=== PATIENT | male | born 1945 | race Caucasian/White ===

== ENCOUNTER → 2017-04-20 | Outpatient (CLI) | payer MEDICARE, OTHER ==
[~2017-04-20] MED LIST: AMINOPHYLLINE INJ/PF 250 MG/10 ML SDV IV ONE; REGADENOSON INJ 0.4 MG/5 ML DISP.SYRIN IV ONE
--- NOTE | 2017-04-20 12:25 | DRAGON STRESS TEST REPORT ---
INTRAVENOUS LEXISCAN CARDIOLITE STRESS TEST USING SINGLE PHOTON EMMISION COMPUTERIZED TOMOGRAPHIC. DATE OF PROCEDURE: April 20, 2017, INDICATION : Coronary artery disease with prior bypass surgery CARDIAC RISK FACTORS: Hypertension, dyslipidemia, tobacco abuse RESTING EKG: Sinus rhythm without any significant baseline ST-T wave changes STRESS EKG: No significant changes noted with LexiScan bolus REASON FOR TERMINATION: Protocol. PROCEDURE REPORT: Baseline heart rate 88 beats per minute with blood pressure of 117/68. Patient had no significant complaints. Heart rate at 2 minutes post bolus 91 with a blood pressure of 115/70. 3 minutes post bolus heart rate 92 with blood pressure of 113/70. No significant EKG changes were noted. Patient had no significant complaints during the procedure or postprocedure. Patient injected with Aminophyllin 75 mg at 3 minutes or later after Lexiscan bolus. CONCLUSIONS: Normal EKG and hemodynamic response to IV LexiScan. NUCLEAR DATA: At rest the patient was given 14.73 millicuries of technetium 99 sestamibi injected intravenously. As per protocol rest gated SPECT images were obtained. On day of stress test, the patient was given intravenous LexiScan at a dose of 0.4 mg in 5 mL intravenously, followed by flush with normal saline. Subsequently the stress dose of 44.6 millicuries of technetium 99 sestamibi was injected intravenously. As per protocol stress gated images were obtained. NUCLEAR INTERPRETATION: Both raw and processed data were used for interpretation. Visual, qualitative, computer-generated quantitative data was used. There was good myocardial uptake of technetium compound. Motion artifact and soft tissue attenuations were noted. Increased visceral uptake was noted. No definitive areas of transient perfusion defect noted, severe fixed perfusion defect noted involving the inferior wall with corresponding inferior wall akinesia, indicative of severe scar involving the inferior wall.. EKG gated imaging showed LV EF at 25 %, rest and stress gated EF similar visually, basal and mid inferior wall akinesia noted. T. I D. ratio was 1.10. Lung heart ratio noted to be within normal limits 0.35. No significant extracardiac and abnormal radiotracer activities were noted. RV free wall uptake was noted to be increased suggestive of RVH and RV enlargement. IMPRESSION: Also refer to comments under nuclear interpretation. Also test results needs to be interpreted in the context of pretest probability. 1. No definitive areas of transient perfusion defect noted. 2. Severe fixed defect noted in the inferior wall consistent with prior inferior myocardial infarction. May consider viability assessment via either cardiac MRI or PET scanning if clinically indicated to look for any hibernating myocardium. 3. EKG gated imaging shows left ventricular ejection fraction of approx. 25 %, basal and mid inferior wall akinesia noted. 4. RV free wall uptake noted to be increased consistent with RVH/RV enlargement. 5. Clinical correlation requested as occasionally single vessel disease or balanced ischemia could be missed. In approximately 10% of the cases Lexiscan may not cause adequate vasodilatory stress. RECOMMENDATIONS: Aggressive risk factor modification and medical management. Further evaluation may be needed if continued symptoms or other high risk indicators are noted on clinical evaluation. Close cardiology follow-up is also recommended. Clinical correlation with echocardiogram derived ejection fraction. Inability to exercise by itself can lead to increased cardiovascular event risks. Consider cardiology consultation and or follow-up if clinically indicated. I am available for cardiology evaluation and consultation if requested by the plastic surgeon, unless patient already has a microbiology technologist. TAINA
== END ==
LOC: RAD 06:41
PROVIDERS: ATTEND Nurse Practitioner Family
DX: I25.10 Atherosclerotic heart disease of native coronary artery without angina pectoris (principal); I10 Essential (primary) hypertension; E78.00 Pure hypercholesterolemia, unspecified; Z72.0 Tobacco use; Z95.1 Presence of aortocoronary bypass graft
CPT/HCPCS: 93017; 78452; A9500; J2785; J0280; Q9969

== ENCOUNTER 2017-05-15 18:43 | Observation (INO) | payer MEDICARE, OTHER ==
--- NOTE | 2017-05-15 20:01 | ER Document Report ---
ED General - General Chief Complaint: Respiratory Distress Stated Complaint: WEAKNESS Time Seen by Provider: 05/15/17 19:12 Cannot obtain history due to: Altered mental status Notes: Patient is a 72-year-old male with a past medical history of coronary artery disease status post four-vessel bypass, CHF status post placement of pacer and defib, COPD with chronic oxygen dependence although apparently his baseline oxygen saturation is 83% on 2 L by nasal cannula, hypertension, and ongoing tobacco abuse as well as narcotic dependence who presents with altered mental status. History is primarily provided by the family at the bedside. The [id number] reports that she goes over to the patient's house each day to help take care of him. She states that usually when she arrives he is up, moving about taking care of his dog and having coffee. She does however when she arrived today all the lights were out in the home and the patient was found to be confused and altered while lying in bed. Is very somnolent, did not wish to get up. They allowed the patient to sleep for several hours more and when they again checked on him he continued to be very tired and want to continue to sleep. At this point EMS was contacted. Patient was found to have a buprenorphine patch on which was removed by EMS. He was subsequently transferred to the emergency department on a nonrebreather. At time of assessment, patient is somnolent but does wake and is able to tell me his name but is unable to tell me the president or where we are. Family the bedside notes that this is not normal for the patient. He has no history of similar episodes in the past. They do not believe he would have misused any of his medications. History is otherwise limited secondary to patient's altered mental status. TRAVEL OUTSIDE OF THE [place] IN LAST 30 DAYS: No - Related Data Allergies/Adverse Reactions: iodine [Iodine] Allergy (Verified 02/19/14 15:08) morphine [Morphine] Allergy (Verified 02/19/14 15:08) Penicillins Allergy (Verified 02/19/14 15:08) Past Medical History - General Information source: Patient, Relative Cannot obtain history due to: Altered mental status - Social History Smoking Status: Current Every Day Smoker Chew tobacco use (# tins/day): No Frequency of alcohol use: None Drug Abuse: None Lives with: Alone Family History: Reviewed & Not Pertinent Patient has suicidal ideation: No Patient has homicidal ideation: No - Past Medical History Cardiac Medical History: Reports: Hx Congestive Heart Failure, Hx Heart Attack, Hx Hypercholesterolemia, Hx Hypertension Neurological Medical History: Reports: Hx Seizures Endocrine Medical History: Reports: Hx Diabetes Mellitus Type 2 - Non insulin dependent Renal/ Medical History: Denies: Hx Peritoneal Dialysis GI Medical History: Reports: Hx Hiatal Hernia Psychiatric Medical History: Reports: Hx Depression Past Surgical History: Reports: Hx Cardiac Catheterization - Carotid, Hx Cardiac Surgery - BYPASS - Immunizations Hx Diphtheria, Pertussis, Tetanus Vaccination: Yes Review of Systems - Review of Systems -: Yes ROS unobtainable due to patient's medical condition Physical Exam - Vital signs Vitals: Resp BP Pulse Ox 23 H 184/172 H 99 05/15/17 19:07 05/15/17 19:07 05/15/17 19:07 Interpretation: Hypertensive, Hypoxic Notes: PHYSICAL EXAMINATION: GENERAL: Appears confused, ill, somnolent HEAD: Atraumatic, normocephalic. EYES: Pupils are pinpoint, sluggishly reactive, extraocular movements intact, sclera anicteric, conjunctiva are normal. ENT: nares patent, oropharynx clear without exudates. Moderately dry mucous membranes. NECK: Normal range of motion, supple without lymphadenopathy LUNGS: Diminished air movement in all lung carpenter. Faint end expiratory wheezing throughout. HEART: Regular rate and rhythm without murmurs, 3 out of 6 systolic ejection murmur ABDOMEN: Obese abdomen, soft, nontender, normoactive bowel sounds. No guarding , no rebound. No masses appreciated. EXTREMITIES: Trace edema in the bilateral lower extremities that is equal and symmetric. No cyanosis. NEUROLOGICAL: No focal neurological deficits. Moves all extremities spontaneously and on command. PSYCH: Somnolent, oriented only to person SKIN: Warm, Dry, normal turgor, no rashes or lesions noted. Course - Re-evaluation Re-evalutation: 05/15/17 19:59 Patient presents very lethargic, difficult awake but does answer questions upon waking. He is oriented only to name, is unaware of the year or month. The patient does present with signs and symptoms worrisome for hypercapnic encephalopathy. Lung examination shows diminished air movement in all lung carpenter. Apparently patient is normally saturating 83-84% on 2 L of nasal cannula at baseline and is supposed to wear CPAP but does not do so. He also has a history of COPD and CHF. He continues to smoke 2 packs a day. He has multiple dietary indiscretions for the family. He is also at risk for opiate overdose as he does take hydrocodone several times daily and has a buprenorphine patch on at baseline. This patch has been removed and patient does not present as having overt opiate overdose. Moreover, his clinical history is not consistent with this as the family notes that when they came over to check on him today in the morning usually is awake, up drinking coffee and having breakfast but instead he was lying in bed and has been doing so all day today. Will place the patient on BiPAP obtain a blood gas, labs, chest x- ray, and continue to reassess the patient frequently. He is critically ill at this time. 05/15/17 20:33 Patient has received a total of 0.2 milligrams of naloxone and did have some improvement of his mental status. His arterial blood gas does show signs consistent with hypercapnic respiratory failure. Will continue on BiPAP, awaiting the remainder labs, imaging studies and then will discuss the hospitalist for admission. 05/15/17 21:11 Patient is becoming more alert, awake after although continues to doze off easily. Awaiting the results of CT scan, chest x-ray and labs. Continue to monitor very closely. Patient remains in guarded condition. 05/15/17 23:05 Patient continues to be somewhat lethargic but wakes more easily than before. His repeat ABG does show improvement of his respiratory acidosis. His BNP is more elevated than baseline although he does not have any overt pulmonary edema on chest x-ray. I discussed this case with Dr. Brice Soria and he is accepted this patient for admission. - Vital Signs Vital signs: Temp Pulse Resp BP Pulse Ox 14 124/82 82 L 05/16/17 01:45 05/16/17 01:01 05/16/17 01:45 - Laboratory Result Diagrams: 05/15/17 21:30 05/15/17 21:30 Laboratory results interpreted by me: 05/15/17 05/15/17 05/15/17 20:15 21:30 21:30 RBC 5.94 H Hgb 17.3 H Hct 53.7 H RDW 21.1 H Plt Count 101 L Seg Neutrophils % 78.6 H Lymphocytes % 9.6 L Carbonic Acid 2.20 H ABG pH 7.26 L ABG pCO2 73.0 H* ABG pO2 58.0 L ABG HCO3 31.7 H ABG Total CO2 33.9 H ABG O2 Saturation 84.8 L Sodium 145.3 H Potassium 5.5 H Carbon Dioxide 31 H BUN 33 H Creatinine 1.51 H Est GFR ( Amer) 55 L Est GFR (Non-Af Amer) 46 L Glucose 128 H NT-Pro-B Natriuret Pep 05/15/17 05/15/17 21:30 22:36 RBC Hgb Hct RDW Plt Count Seg Neutrophils % Lymphocytes % Carbonic Acid 2.10 H ABG pH 7.29 L ABG pCO2 69.8 H* ABG pO2 56.2 L ABG HCO3 33.0 H ABG Total CO2 35.2 H ABG O2 Saturation 85.0 L Sodium Potassium Carbon Dioxide BUN Creatinine Est GFR ( Amer) Est GFR (Non-Af Amer) Glucose NT-Pro-B Natriuret Pep 5910 H - Diagnostic Test Radiology reviewed: Image reviewed, Reports reviewed Radiology results interpreted by me: 05/15/17 23:06 CT head: No acute intracranial bleed Chest x-ray: No overt pulmonary edema - EKG Interpretation by Me Additional EKG results interpreted by me: 05/15/17 23:07 Normal sinus rhythm. Rate 79. No ST elevations or depressions. QTC is 441. Critical Care Note - Critical Care Note Total time excluding time spent on procedures (mins): 39 Comments: Critical care time spent obtaining history from patient or surrogate, discussions with consultants, development of treatment plan with patient or surrogate, evaluation of patient's response to treatment, examination of patient , ordering and performing treatments and interventions, ordering and review of laboratory studies, re-evaluation of patient's condition, ordering and review of radiographic studies and review of old charts Discharge - Discharge Clinical Impression: Hypercapnia, COPD exacerbation Altered mental status Qualifiers: Altered mental status type: somnolence Qualified Code(s): R40.0 - Somnolence Narcotic overdose Qualifiers: Encounter type: initial encounter Injury intent: accidental or unintentional Qualified Code(s): T40.601A - Poisoning by unspecified narcotics, accidental ( unintentional), initial encounter Condition: Fair Disposition: ADMITTED INPATIENT Admitting Provider: [facility], [facility] Unit Admitted: Telemetry
[2017-05-15] MEDS ORDERED: NALOXONE HCL INJ/PF 0.4 MG/1 ML SDV IV ONE (20:02)
[2017-05-15 20:31] LABS: ARTERIAL BLOOD BASE EXCESS 1.5 mmol/L; ARTERIAL BLOOD FIO2 40%; ARTERIAL BLOOD HCO3 31.7 mmol/L (20-26); ARTERIAL BLOOD O2 SATURATION 84.8 % (94-98); ARTERIAL BLOOD PH 7.26 (7.35-7.45); ARTERIAL BLOOD TOTAL CO2 33.9 mmol/L (23-27)
--- NOTE | 2017-05-15 21:20 | RADIOLOGY REPORT (SQ) ---
EXAM DESCRIPTION: CHEST PA/LAT COMPLETED DATE/TIME: 05/15/2017 9:06 pm REASON FOR STUDY: shortness of breath COMPARISON: 03/11/2014 EXAM PARAMETERS: NUMBER OF VIEWS: two views TECHNIQUE: Digital Frontal and Lateral radiographic views of the chest acquired. RADIATION DOSE: NA LIMITATIONS: none FINDINGS: LUNGS AND PLEURA: No opacities, masses or pneumothorax. No pleural effusion. MEDIASTINUM AND HILAR STRUCTURES: No masses or contour abnormalities. HEART AND VASCULAR STRUCTURES: Heart normal size. No evidence for failure. BONES: No acute findings. HARDWARE: Patient is/defibrillator. Sternotomy wire. Neural spine stimulator. OTHER: No other significant finding. IMPRESSION: NO SIGNIFICANT RADIOGRAPHIC FINDING IN THE CHEST. TECHNICAL DOCUMENTATION: JOB ID: [id number] [employer]- All Rights Reserved Reading location - IP/workstation name: [email or web address]
--- NOTE | 2017-05-15 21:24 | RADIOLOGY REPORT (SQ) ---
EXAM DESCRIPTION: CT HEAD WITHOUT COMPLETED DATE/TIME: 05/15/2017 9:07 pm REASON FOR STUDY: ams COMPARISON: None. TECHNIQUE: Axial images acquired through the brain without intravenous contrast. Images reviewed wi th bone, brain and subdural windows. Images stored on PACS. All CT scanners at this facility use dose modulation, iterative reconstruction, and/or weight based d osing when appropriate to reduce radiation dose to as low as reasonably achievable (ALARA). [facility]: Dose Right [facility]: CareDose [facility]: Dose Right [facility]: Teradose 4D [facility]: Smart [employer] RADIATION DOSE: CT Rad equipment meets quality standard of care and radiation dose reduction techniq ues were employed. CTDIvol: 64.6 mGy. DLP: 1267 mGy-cm. mGy. LIMITATIONS: None. FINDINGS: VENTRICLES: Normal size and contour. CEREBRUM: No masses. No hemorrhage. No midline shift. No evidence for acute infarction. Few scatte red areas of low density in the white matter most likely chronic small vessel ischemic changes. CEREBELLUM: No masses. No hemorrhage. No alteration of density. No evidence for acute infarction. EXTRAAXIAL SPACES: No fluid collections. No masses. ORBITS AND GLOBE: No intra- or extraconal masses. Normal contour of globe without masses. CALVARIUM: No fracture. PARANASAL SINUSES: No fluid or mucosal thickening. SOFT TISSUES: No mass or hematoma. OTHER: No other significant finding. IMPRESSION: MILD CHRONIC MICROVASCULAR ISCHEMIA. NO ACUTE IMAGING FINDINGS IN THE BRAIN. EVIDENCE OF ACUTE STROKE: NO. COMMENT: Quality ID # [id number]: Final reports with documentation of one or more dose reduction techniques (e.g., Automated exposure control, adjustment of the mA and/or kV according to patient size, use of iterative reconstruction technique) TECHNICAL DOCUMENTATION: JOB ID: [id number] [employer] All Rights Reserved Reading location - IP/workstation name: [email or web address]
[2017-05-15 21:47] LABS: ABSOLUTE LYMPHOCYTES (AUTO) 0.9 10^3/uL (0.5-4.7); ABSOLUTE MONOCYTES (AUTO) 1.1 10^3/uL (0.1-1.4); ABSOLUTE NEUT (AUTO) 7.7 10^3/uL (1.7-8.2); BASOPHILS % (AUTO) 0.3 % (0-2); HEMATOCRIT 53.7 % (37.9-51.0); HEMOGLOBIN 17.3 g/dL (13.5-17.0); LYMPHOCYTES % (AUTO) 9.6 % (13-45); MEAN CORPUSCULAR HEMOGLOBIN 29.1 pg (27.0-33.4); MEAN CORPUSCULAR HGB CONC 32.3 g/dL (32.0-36.0); MEAN CORPUSCULAR VOLUME 90 fl (80-97); MONOCYTES % (AUTO) 11.5 % (3-13); PLATELET COUNT 101 10^3/uL (150-450); RED BLOOD COUNT 5.94 10^6/uL (4.35-5.55); RED CELL DISTRIBUTION WIDTH 21.1 % (11.5-14.0); SEGMENTED NEUTROPHILS % (AUTO) 78.6 % (42-78); TOTAL CELLS COUNTED % (AUTO) 100 %; WHITE BLOOD COUNT 9.8 10^3/uL (4.0-10.5)
--- NOTE | 2017-05-15 21:54 | EKG REPORT ---
SEVERITY:- ABNORMAL ECG - SINUS RHYTHM PROBABLE INFERIOR INFARCT, AGE INDETERMINATE : Confirmed by: Maranda Petersen 15-May-2017 21:54:29
[2017-05-15 22:04] LABS: ALANINE AMINOTRANSFERASE 22 U/L (21-72); ALBUMIN 4.4 g/dL (3.5-5.0); ALKALINE PHOSPHATASE 49 U/L (38-126); ANION GAP 11 (5-19); ASPARTATE AMINO TRANSFERASE 26 U/L (17-59); BILIRUBIN,DIRECT 0.3 mg/dL (0.0-0.4); BILIRUBIN,TOTAL 0.4 mg/dL (0.2-1.3); BLOOD UREA NITROGEN 33 mg/dL (7-20); CALCIUM 9.6 mg/dL (8.4-10.2); CARBON DIOXIDE 31 mmol/L (22-30); CHLORIDE 103 mmol/L (98-107); GLUCOSE 128 mg/dL (75-110); POTASSIUM 5.5 mmol/L (3.6-5.0); SODIUM 145.3 mmol/L (137-145); TOTAL PROTEIN 6.6 g/dL (6.3-8.2)
[2017-05-15 22:35] LABS: TROPONIN I 0.054 ng/mL
[2017-05-15 22:46] LABS: ARTERIAL BLOOD BASE EXCESS 3.6 mmol/L; ARTERIAL BLOOD PH 7.29 (7.35-7.45); ARTERIAL BLOOD PO2 56.2 mmHg (80-100); ARTERIAL BLOOD TOTAL CO2 35.2 mmol/L (23-27)
[2017-05-15 22:48] LABS: ARTERIAL BLOOD FIO2 50%
[2017-05-15 22:54] LABS: ARTERIAL BLOOD PCO2 69.8 mmHg (35-45)
[2017-05-15] MEDS ORDERED: IPRATROPIUM/ALBUTEROL 0.5-2.5 MG/3 ML AMPUL NEB ONE (23:08)
[2017-05-15] MEDS ORDERED: METHYLPREDNISOLONE INJ 125 MG/2 ML SDV IV ONE (23:08)
--- NOTE | 2017-05-16 04:13 | PDOC H&P ---
History of Present Illness Admission Date/PCP: 05/16/17 00:14 RYNE EDMONDSON PA-C Patient complains of: Altered mental status History of Present Illness: MICHAEL GRAIBAY is a 72 year old male with a past medical history of obstructive sleep apnea, chronic bronchitis, COPD with home oxygen dependence, coronary artery disease, congestive heart failure with ejection fraction 25%, status post pacemaker, defibrillator, CPAP noncompliance and ongoing tobacco abuse. Patient presents after [id number] reports patient found confused and somnolent. EMS discovered opiate patch and oxygen saturations in the 70s. He is brought to the emergency room for evaluation found to have pinpoint pupils receiving Narcan and placed on BiPAP. ABG reveals a PCO2 of 73. Patient is unable to maintain conversation. No additional history is available. Past Medical History Cardiac Medical History: Reports: Congestive Heart Failure, Myocardial Infarction, Hyperlipidema, Hypertension Pulmonary Medical History: Reports: Bronchitis, Chronic Obstructive Pulmonary Disease (COPD) Neurological Medical History: Reports: Seizures Endocrine Medical History: Reports: Diabetes Mellitus Type 2 - Non insulin dependent GI Medical History: Reports: Hiatal Hernia Psychiatric Medical History: Reports: Depression, Tobacco Dependency Past Surgical History Past Surgical History: Reports: Cardiac Catheterization - Carotid, Internal Defibrillator, Pacemaker Social History Information Source: Emergency Med Personnel, [facility] Records Lives with: Alone Smoking Status: Current Every Day Smoker - Advance Directive Resuscitation Status: Full Code Family History Parental Family History Reviewed: No Children Family History Reviewed: No Sibling(s) Family History Reviewed.: No Medication/Allergy Home Medications: Atorvastatin Calcium [Lipitor 80 mg Tablet] 80 mg PO QHS 02/03/14 Celecoxib [Celebrex 200 mg Capsule] 200 mg PO DAILY 02/03/14 Clopidogrel Bisulfate [Plavix 75 mg Tablet] 75 mg PO DAILY 02/03/14 Cyclobenzaprine HCl 5 mg PO TID PRN 02/03/14 Divalproex Sodium [Divalproex Sodium ER] 500 mg PO QHS 02/03/14 Docusate Sodium [Colace 100 mg Capsule] 100 mg PO BID 02/03/14 Escitalopram Oxalate [Lexapro 10 mg Tablet] 10 mg PO DAILY 02/03/14 Hydrocodone/Acetaminophen [[place] 5-325 Tablet] 1 each PO BID PRN 02/03/14 Melatonin/Pyridoxine HCl (B6) [Melatonin 5 mg Tablet] 1 each PO QHS 02/03/14 Metoprolol Succinate 25 mg PO DAILY 02/03/14 Risperidone [Risperdal 1 mg Tablet] 1 mg PO Q12 02/03/14 Rizatriptan Benzoate [Maxalt] 10 mg PO ASDIR PRN 02/03/14 Tramadol HCl 50 mg PO QHS PRN 02/03/14 Allergies/Adverse Reactions: iodine [Iodine] Allergy (Verified 02/19/14 15:08) morphine [Morphine] Allergy (Verified 02/19/14 15:08) Penicillins Allergy (Verified 02/19/14 15:08) Review of Systems ROS unobtainable: Due to mental status Physical Exam Vital Signs: Temp Pulse Resp BP Pulse Ox 15 145/87 H 90 L 05/16/17 03:01 05/16/17 03:01 05/16/17 03:01 General appearance: PRESENT: disheveled, severe distress, other - Chronically ill-appearing with temporal wasting and cachexia Head exam: PRESENT: atraumatic, normocephalic Eye exam: PRESENT: conjunctiva pink, EOMI, PERRLA. ABSENT: scleral icterus Ear exam: PRESENT: normal external ear exam Mouth exam: PRESENT: moist, tongue midline Neck exam: ABSENT: carotid bruit, JVD, lymphadenopathy, thyromegaly Respiratory exam: PRESENT: crackles, decreased breath sounds, prolonged expiratory phas, retraction, symmetrical, tachypnea Cardiovascular exam: PRESENT: RRR. ABSENT: diastolic murmur, rubs, systolic murmur Pulses: PRESENT: normal dorsalis pedis pul Vascular exam: PRESENT: normal capillary refill GI/Abdominal exam: PRESENT: ascites, normal bowel sounds, soft. ABSENT: distended, guarding, mass, organolmegaly, rebound, tenderness Rectal exam: PRESENT: deferred Extremities exam: PRESENT: full ROM, tenderness, +1 edema. ABSENT: calf tenderness, clubbing, pedal edema Neurological exam: PRESENT: altered. ABSENT: motor sensory deficit Skin exam: PRESENT: dry, intact, petechiae - Bilateral lower extremity petechia , warm. ABSENT: cyanosis, rash Results Impressions: Head CT 05/15/17 00:00 IMPRESSION: MILD CHRONIC MICROVASCULAR ISCHEMIA. NO ACUTE IMAGING FINDINGS IN THE BRAIN. EVIDENCE OF ACUTE STROKE: NO. Chest X-Ray 03/05/18 19:57 IMPRESSION: NO SIGNIFICANT RADIOGRAPHIC FINDING IN THE CHEST. Assessment & Plan - Diagnosis (1) Narcotic overdose Qualifiers: Encounter type: initial encounter Injury intent: accidental or unintentional Qualified Code(s): T40.601A - Poisoning by unspecified narcotics , accidental (unintentional), initial encounter Is this a current diagnosis for this admission?: Yes Plan: Patch removed by EMS, pinpoint pupils and hypoventilation. Narcan as needed, BiPAP support, opiate weaning. (2) COPD exacerbation Is this a current diagnosis for this admission?: Yes Plan: Albuterol and Atrovent, incentive spirometry and flutter valve, BiPAP support (3) Congestive heart failure Is this a current diagnosis for this admission?: Yes Plan: BiPAP, supplemental oxygen, optimize blood pressure and ventilation (4) Hypercapnia Is this a current diagnosis for this admission?: Yes Plan: Complicated by past medical history apnea, opiate use. BiPAP and opiate weaning - Time Time Spent: 50 to 70 Minutes - Inpatient Certification Medical Necessity: Need Close Monitoring Due to Risk of Patient Decompensation
[2017-05-16] MEDS ORDERED: RINGERS SOLUTION,LACTATED 1,000 ML IV PRN (08:24)
[2017-05-16] MEDS ORDERED: 1/2 NORMAL SALINE 1,000 ML IV PRN (08:30)
[2017-05-16] MEDS ORDERED: ENOXAPARIN SODIUM INJ 30 MG/0.3 ML DISP.SYRIN SUBCUT SCH (10:00)
[2017-05-16 11:08] LABS: ANION GAP 12 (5-19); BLOOD UREA NITROGEN 34 mg/dL (7-20); CALCIUM 8.9 mg/dL (8.4-10.2); CARBON DIOXIDE 31 mmol/L (22-30); CHLORIDE 101 mmol/L (98-107); GLUCOSE 190 mg/dL (75-110); POTASSIUM 5.3 mmol/L (3.6-5.0); SODIUM 143.5 mmol/L (137-145)
[2017-05-16 11:51] LABS: APPEARANCE,URINE SLIGHTLY-CLOUDY; BILIRUBIN,URINE NEGATIVE (NEGATIVE); COLOR,URINE YELLOW; GLUCOSE, URINE NEGATIVE (NEGATIVE); KETONES,URINE NEGATIVE (NEGATIVE); LEUKOCYTE ESTERASE,URINE NEGATIVE (NEGATIVE); NITRITE,URINE NEGATIVE (NEGATIVE); PROTEIN,URINE NEGATIVE (NEGATIVE); UROBILINOGEN,URINE NEGATIVE mg/dL (<2.0)
[2017-05-16] MEDS: IPRATROPIUM/ALBUTEROL 0.5-2.5 MG/3 ML AMPUL NEB SCH ×3 (12:47→19:49)
--- NOTE | 2017-05-16 13:27 | PDOC DISCHARGE SUMMARY ---
General - Admit/Disc Date/PCP Admission Date/Primary Care Provider: 05/16/17 00:14 RYNE EDMONDSON PA-C Discharge Date: 05/16/17 - Discharge Diagnosis (1) Altered mental status Is this a current diagnosis for this admission?: Yes (2) COPD exacerbation Is this a current diagnosis for this admission?: Yes (3) Congestive heart failure Is this a current diagnosis for this admission?: Yes (4) Hypercapnia Is this a current diagnosis for this admission?: Yes (5) Narcotic overdose Is this a current diagnosis for this admission?: Yes (6) Metabolic encephalopathy Is this a current diagnosis for this admission?: Yes - Additional Information Resuscitation Status: Full Code Home Medications: Buprenorphine [Butrans] 20 mcg TOP Q7D 05/16/17 Carbidopa/Levodopa [Sinemet 25-100 mg Tablet] 1 tab PO Q8 05/16/17 Clopidogrel Bisulfate [Plavix 75 mg Tablet] 75 mg PO DAILY 05/16/17 Docusate Sodium [Colace 100 mg Capsule] 100 mg PO TID 05/16/17 Finasteride [Proscar 5 mg Tablet] 5 mg PO DAILY 05/16/17 Furosemide [Lasix 40 mg Tablet] 40 mg PO DAILY 05/16/17 Gabapentin [Neurontin 300 mg Capsule] 300 mg PO Q8 05/16/17 Hydrocodone/Acetaminophen [Hydrocodone-Acetamin 7.5-325] 1 tab PO Q8 05/16/17 Magnesium Oxide [Mag-Ox 400 mg Tablet] 400 mg PO DAILY 05/16/17 Mineral Oil/Petrolatum,White [Eucerin Cream 114 gm] 1 applic TOP DAILYP PRN 08/28 Mirabegron [Myrbetriq] 25 mg PO DAILY 05/16/17 Potassium Chloride [K-Tab ER] 20 meq PO DAILY 05/16/17 Quetiapine Fumarate [Seroquel] 50 mg PO BID 05/16/17 Simvastatin [Zocor 40 mg Tablet] 40 mg PO QHS 05/16/17 Tamsulosin HCl [Flomax 0.4 mg Cap.sr] 0.4 mg PO PCSUPPER 05/16/17 History of Present Illness History of Present Illness: MICHAEL GARIBAY is a 72 year old male with a past medical history of obstructive sleep apnea, chronic bronchitis, COPD with home oxygen dependence, coronary artery disease, congestive heart failure with ejection fraction 25%, status post pacemaker, defibrillator, CPAP noncompliance and ongoing tobacco abuse. Patient presents after [id number] reports patient found confused and somnolent. EMS discovered opiate patch and oxygen saturations in the 70s. He is brought to the emergency room for evaluation found to have pinpoint pupils receiving Narcan and placed on BiPAP. ABG reveals a PCO2 of 73. Patient is unable to maintain conversation. No additional history is available. Hospital Course Hospital Course: Patient is a 72-year-old man with history of chronic respiratory failure on home oxygen, COPD 2 L at home, coronary artery disease, systolic dysfunction, medical noncompliance. He refused to wear his oxygen. He was found at home by the son somnolent and confused. He was brought to the ER and there was a concern for narcotic overdose. ABG revealing hypercapnia with PCO2 of 73. Before going down to see up patient, I have receive a call from the nurse that the patient wanted to go home. I spoke to both the patient and the family that he needs to wear the oxygen and the family denies that the patient took too many of his narcotic medications. 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 He also was advised to titrate his oxygen level to 3-4 L to maintain O2 sat >88-90%. He is being discharged home and the family plans to stay with him tonight. Physical Exam Vital Signs: Temp Pulse Resp BP Pulse Ox 98.3 F 87 20 150/87 H 92 05/16/17 11:04 05/16/17 12:47 05/16/17 12:47 05/16/17 09:01 05/16/17 12:47 General appearance: PRESENT: no acute distress, other - chronically ill elderly man Head exam: PRESENT: atraumatic, normocephalic Eye exam: PRESENT: EOMI Mouth exam: PRESENT: neck supple Neck exam: PRESENT: full ROM Respiratory exam: PRESENT: decreased breath sounds, unlabored. ABSENT: accessory muscle use Cardiovascular exam: PRESENT: RRR GI/Abdominal exam: PRESENT: normal bowel sounds, soft Rectal exam: ABSENT: deferred Extremities exam: PRESENT: full ROM Neurological exam: PRESENT: oriented to person, oriented to time, oriented to situation Psychiatric exam: PRESENT: appropriate affect Skin exam: PRESENT: dry, warm Results Laboratory Results: 05/16/17 10:10 05/16/17 05/16/17 10:10 11:15 Sodium 143.5 Potassium 5.3 H Chloride 101 Carbon Dioxide 31 H Anion Gap 12 BUN 34 H Creatinine 1.23 Est GFR ( Amer) > 60 Est GFR (Non-Af Amer) 58 L Glucose 190 H Calcium 8.9 Urine Color YELLOW Urine Appearance SLIGHTLY-CLOUDY Urine pH 5.0 Ur Specific [place] 1.020 Urine Protein NEGATIVE Urine Glucose (UA) NEGATIVE Urine Ketones NEGATIVE Urine Blood NEGATIVE Urine Nitrite NEGATIVE Ur Leukocyte Esterase NEGATIVE Urine WBC (Auto) 8 Urine RBC (Auto) 2 Impressions: Head CT 05/15/17 00:00 IMPRESSION: MILD CHRONIC MICROVASCULAR ISCHEMIA. NO ACUTE IMAGING FINDINGS IN THE BRAIN. EVIDENCE OF ACUTE STROKE: NO. Chest X-Ray 05/15/17 19:57 IMPRESSION: NO SIGNIFICANT RADIOGRAPHIC FINDING IN THE CHEST. Qualifiers - * PATEINT BEING DISCHARGED WITH ANY OF THE FOLLOWING DIAGNOSIS?: No VTE patient discharged on overlapping Therapy?: Yes Plan Time Spent: Less than 30 Minutes
[2017-05-16 14:27] VITALS: BP 156/82
[2017-05-17] MEDS ORDERED: ENOXAPARIN SODIUM INJ 30 MG/0.3 ML DISP.SYRIN SUBCUT SCH (10:00)
== END 2017-05-16 14:53 | disposition home or self-care (01) ==
LOC: ER 18:43 → EH 05-16 00:14 → INTOOBSV 05-16 00:14
PROVIDERS: ADMIT Internal Medicine; ATTEND Internal Medicine
DX: R41.82 Altered mental status, unspecified (principal); J44.1 Chronic obstructive pulmonary disease with (acute) exacerbation; I11.0 Hypertensive heart disease with heart failure; I50.9 Heart failure, unspecified; J96.12 Chronic respiratory failure with hypercapnia; T40.601A Poisoning by unspecified narcotics, accidental (unintentional), initial encounter; G93.41 Metabolic encephalopathy; G47.33 Obstructive sleep apnea (adult) (pediatric); I25.10 Atherosclerotic heart disease of native coronary artery without angina pectoris; E11.9 Type 2 diabetes mellitus without complications; I25.2 Old myocardial infarction; F17.210 Nicotine dependence, cigarettes, uncomplicated; E78.5 Hyperlipidemia, unspecified; R18.8 Other ascites; F11.20 Opioid dependence, uncomplicated; Z99.81 Dependence on supplemental oxygen; Z95.810 Presence of automatic (implantable) cardiac defibrillator; Z91.14 Patient's other noncompliance with medication regimen; Z79.899 Other long term (current) drug therapy; Z95.1 Presence of aortocoronary bypass graft; E66.9 Obesity, unspecified; E87.2 Acidosis; Z68.29 Body mass index [BMI] 29.0-29.9, adult
CPT/HCPCS: 93005; 99291; 36415 ×2; 82803; 85025; 80048; 80053; 81001; 84484; 83605; 83880; 71046; 70450; 93010; 94660 ×2; 94640; J2930; J2310; J1650; A9270; J7620

== ENCOUNTER → 2017-06-30 | Outpatient (CLI) | payer MEDICARE, OTHER ==
--- NOTE | 2017-06-30 14:25 | RADIOLOGY REPORT (SQ) ---
EXAM DESCRIPTION: CT LUNG CANCER SCREENING COMPLETED DATE/TIME: 06/30/2017 1:59 pm REASON FOR STUDY: PERSONAL HX OF NICOTINE DEPENDENCE Z87.891 PERSONAL HISTORY OF NICOTINE DEPENDENC E Has the patient had a Chest CT scan within the past year? Yes. Was the patient offered tobacco cessation counseling? Yes. Was the patient engaged in shared decision making for this test? Yes. Does the patient have signs or symptoms of Lung Cancer? No. Is the patient a smoker? Yes. How many packs per year? 730. How many years since quitting smoking? Current smoker. Patients age: 72. COMPARISON: None. TECHNIQUE: Low Dose CT scan performed of the chest without intravenous contrast for purposes of scre ening for lung cancer. Images reviewed with lung, soft tissue and bone windows. Reconstructed coron al and sagittal MPR images reviewed. All images stored on PACS. All CT scanners at this facility use dose modulation, iterative reconstruction, and/or weight based d osing when appropriate to reduce radiation dose to as low as reasonably achievable (ALARA). [facility]: Dose Right [facility]: CareDose [facility]: Dose Right [facility]: Teradose 4D [facility]: [employer] RADIATION DOSE: mGy. . LIMITATIONS: No technical limitations. FINDINGS: LUNG NODULES: 4.3 mm nodule in the right upper lobe (axial series 3, image 39). 5 mm nod ule in the anterior lingula (axial series 3, image 126). 6 small 5 mm subpleural nodule in the poste rior left lower lobe (axial series 3, image 142). REMAINING LUNGS AND PLEURA: No pleural effusions or calcifications. No pneumothorax. Mild chron ic scarring. HILAR AND MEDIASTINAL STRUCTURES: No identified masses. No abnormal nodes. HEART AND VASCULAR STRUCTURES: No aortic aneurysm. No pericardial effusion. Pacemaker, sternotomy wires, prosthetic valve. CORONARY ARTERY CALCIFICATIONS: Mild to moderate calcifications. UPPER ABDOMEN: No significant findings. THYROID AND OTHER SOFT TISSUES: No masses. No adenopathy. BONES: No significant finding. OTHER: Spinal stimulator electrodes. IMPRESSION: PROBABLY BENIGN FINDINGS IN THE LUNGS. NO OTHER CLINICALLY SIGNIFICANT/POTENTIALLY CLINICALLY SIGNIFICANT FINDINGS LUNGRADS: LUNGRADS: 3, PROBABLY BENIGN. PROBABLY BENIGN FINDING(S)- SHORT TERM FOLLOW UP SUGGESTED; INCLUDES NODULES WITH A LOW LIKELIHOOD OF BECOMING A CLINICALLY ACTIVE CANCER. MODIFIER: NONE. RECOMMENDATION: Followup LDCT in 6 months. COMMENT: CRITERIA: Solid nodule(s): ? 6 mm to < 8 mm at baseline OR new 4 mm to < 6 mm. Part solid nodule(s): ? 6 mm total diameter with solid component < 6 mm OR new < 6 mm total diameter . Non solid nodule(s) (GGN): ? [address] or new. TECHNICAL DOCUMENTATION: JOB ID: [id number] Quality ID # [id number]: Final reports with documentation of one or more dose reduction techniques (e.g., Au tomated exposure control, adjustment of the mA and/or kV according to patient size, use of iterative reconstruction technique) 2010 [facility] Reading location - IP/workstation name: [email or web address]
== END ==
LOC: RAD 13:47
PROVIDERS: ATTEND Physician Assistant
DX: Z87.891 Personal history of nicotine dependence (principal)
CPT/HCPCS: G0297